=== PATIENT | male | born 1985 | race Two or more races ===

== ENCOUNTER 2022-06-08 23:11 | Emergency (ER) | payer SELFPAY ==
[2022-06-08] MEDS ORDERED: MECLIZINE HCL 25 MG TABLET (FP) PO ONE (23:18)
[2022-06-08] MEDS ORDERED: ONDANSETRON 4 MG/2 ML VIAL IVPB ONE (23:18)
[2022-06-08 23:21] VITALS: BP 138/99; PULSE 104; RESP 18; TEMP 97.8; BMI 36.6
[2022-06-08] MEDS ORDERED: ONDANSETRON 4 MG/2 ML VIAL ONE (23:42)
[2022-06-08] MEDS ORDERED: MECLIZINE HCL 25 MG TABLET (FP) ONE (23:43)
[2022-06-09 00:47] LABS: BASO % 0.4 % (0-2.0); EOS % 0.2 % (0-4.5); HEMATOCRIT 48.8 % (35.4-49); HEMOGLOBIN 16.6 GM/dL (11.7-16.9); LYMPH % 26.9 % (8-40); MCH 28.5 pg (25.7-33.7); MEAN PLT VOLUME 9.9 fl (7.5-11.1); MONO % 8.2 % (3.8-10.2); NEUT % 64.3 % (42.8-82.8); PLATELET COUNT 171 10^3/uL (134-434); RBC 5.81 M/mm3 (4.00-5.60); RDW 14.1 % (11.9-15.9); WHITE BLOOD COUNT 12.6 K/mm3 (4.0-10.0)
[2022-06-09 01:15] LABS: CHLORIDE 96 mmol/L (98-107); SODIUM 136 mmol/L (136-145)
[2022-06-09 01:17] LABS: ALBUMIN 4.6 g/dl (3.4-5.0); ANION GAP 11 MMOL/L (8-16); BLOOD UREA NITROGEN 16.2 mg/dL (7-18); CALCIUM 9.4 mg/dL (8.5-10.1); CO2 29 mmol/L (21-32)
[2022-06-09 01:20] LABS: CREATININE 1.1 mg/dL (0.55-1.3); SGOT/AST 17 U/L (15-37); SGPT/ALT 101 U/L (13-61)
[2022-06-09] MEDS ORDERED: MAG HYDROX/AL HYDROX/SIMETH 30 ML UNIT-DOSE CUP PO ONE (01:21)
[2022-06-09 01:22] LABS: BILIRUBIN,TOTAL 1.2 mg/dL (0.2-1); TOT PROT 8.3 g/dl (6.4-8.2)
[2022-06-09 01:23] LABS: ALK PHOS 251 U/L (45-117)
[2022-06-09] MEDS ORDERED: MAG HYDROX/AL HYDROX/SIMETH 30 ML UNIT-DOSE CUP ONE (01:25)
[2022-06-09 01:39] LABS: GLUCOSE,RANDOM 548 mg/dL (74-106)
[2022-06-09] MEDS ORDERED: INSULIN REGULAR HUMAN 100 UNITS/ML *VIAL IVPUSH ONE ×2 (01:51→03:48)
[2022-06-09] MEDS ORDERED: INSULIN REGULAR HUMAN 100 UNITS/ML *VIAL ONE ×2 (01:59→03:44)
[2022-06-09] MEDS ORDERED: SODIUM CHLORIDE 1,000 ML IV ONE ×3 (02:03→03:49)
== END 2022-06-09 04:58 | disposition home or self-care (01) ==
LOC: FER 23:11
PROC: 3E013VG Introduction of Insulin into Subcutaneous Tissue, Percutaneous Approach (ICD-10-PCS; principal; 2022-06-08)
PROC: 3E013VG Introduction of Insulin into Subcutaneous Tissue, Percutaneous Approach (ICD-10-PCS; 2022-06-08)
PROC: 3E033GC Introduction of Other Therapeutic Substance into Peripheral Vein, Percutaneous Approach (ICD-10-PCS; 2022-06-08)
PROC: 3E0337Z Introduction of Electrolytic and Water Balance Substance into Peripheral Vein, Percutaneous Approach (ICD-10-PCS; 2022-06-08)
DX: R55 Syncope and collapse (principal)
CPT/HCPCS: 36415; 70450-TC; 80053; 82962; 85025; 93005; 99285-25

== ENCOUNTER 2024-04-05 15:08 | Emergency (ER) | payer OTHER ==
[2024-04-05 16:41] VITALS: BP 165/94; PULSE 92; RESP 20; TEMP 98.4; BMI 29.9
[2024-04-05] MEDS ORDERED: METOCLOPRAMIDE HCL INJECTION 10 MG/2 ML VIAL ONE (16:58)
[2024-04-05] MEDS ORDERED: MECLIZINE HCL 25 MG TABLET (FP) ONE (16:59)
[2024-04-05 17:08] LABS: HEMATOCRIT 46.6 % (35.4-49); HEMOGLOBIN 15.5 G/dL (11.7-16.9); MCHC 33.2 g/dl (32.0-35.9); MEAN CELL VOLUME 84.3 fl (80-96); MEAN PLT VOLUME 9.8 fl (7.5-11.1); PLATELET COUNT 157.3 10^3/uL (134-434); RBC 5.53 10^6/uL (4.00-5.60); RDW 14.3 % (11.9-15.9); WHITE BLOOD COUNT 9.9 10^3/uL (4.0-10.8)
[2024-04-05] MEDS: SODIUM CHLORIDE 0.9% 1000 ML INFUS.BAG IV ONE (17:09)
[2024-04-05] MEDS: MECLIZINE HCL 25 MG TABLET (FP) PO ONE (17:09)
[2024-04-05] MEDS: METOCLOPRAMIDE HCL INJECTION 10 MG/2 ML VIAL IVPUSH ONE (17:10)
[2024-04-05 17:23] LABS: PLATELET ESTIMATE ADEQUATE
[2024-04-05 17:27] LABS: ALBUMIN 4.9 g/dl (3.4-5.0); BILIRUBIN,TOTAL 0.6 mg/dl (0.2-1); CALCIUM 9.4 mg/dl (8.5-10.1); CREATININE 0.7 mg/dl (0.6-1.3); POTASSIUM 3.7 mmol/L (3.5-5.1); TOT PROT 6.8 g/dl (6.4-8.2)
== END 2024-04-05 19:59 | disposition home or self-care (01) ==
LOC: FER 15:08
PROC: 3E033GC Introduction of Other Therapeutic Substance into Peripheral Vein, Percutaneous Approach (ICD-10-PCS; principal; 2024-04-05)
DX: R42 Dizziness and giddiness (principal); R11.2 Nausea with vomiting, unspecified; H92.02 Otalgia, left ear; H53.149 Visual discomfort, unspecified; Z20.822 Contact with and (suspected) exposure to COVID-19
CPT/HCPCS: 0241U-QW; 36415; 70450-TC; 80053; 85027; 99284-25

== ENCOUNTER 2024-04-07 12:02 | Emergency (ER) | payer OTHER ==
[2024-04-07 12:42] VITALS: BP 143/99; PULSE 88; RESP 16; TEMP 98.8; BMI 39.8
[2024-04-07] MEDS ORDERED: ACETAMINOPHEN INJECTION 100 ML IVPB ONE (13:16)
[2024-04-07] MEDS ORDERED: MECLIZINE HCL 25 MG TABLET (FP) ONE (13:16)
[2024-04-07] MEDS ORDERED: METOCLOPRAMIDE HCL INJECTION 10 MG/2 ML VIAL ONE (13:16)
[2024-04-07] MEDS: SODIUM CHLORIDE 0.9% 500 ML INFUS.BAG IV ONE (13:24)
[2024-04-07] MEDS: MECLIZINE HCL 25 MG TABLET (FP) PO ONE (13:24)
[2024-04-07] MEDS: ACETAMINOPHEN 1000 MG/100 ML BAG IVPB ONE (13:25)
[2024-04-07] MEDS: METOCLOPRAMIDE HCL INJECTION 10 MG/2 ML VIAL IVPUSH ONE (13:25)
[2024-04-07 13:33] LABS: HEMATOCRIT 46.8 % (35.4-49); HEMOGLOBIN 15.5 G/dL (11.7-16.9); MCH 27.8 pg (25.7-33.7); MCHC 33.1 g/dl (32.0-35.9); MEAN CELL VOLUME 83.8 fl (80-96); MEAN PLT VOLUME 9.8 fl (7.5-11.1); PLATELET COUNT 170.2 10^3/uL (134-434); RBC 5.58 10^6/uL (4.00-5.60); RDW 14.9 % (11.9-15.9); WHITE BLOOD COUNT 7.2 10^3/uL (4.0-10.8)
[2024-04-07 13:37] LABS: PLATELET ESTIMATE ADEQUATE
[2024-04-07 13:44] LABS: ALBUMIN 4.8 g/dl (3.4-5.0); BILIRUBIN,TOTAL 0.6 mg/dl (0.2-1); CALCIUM 9.8 mg/dl (8.5-10.1); CREATININE 0.7 mg/dl (0.6-1.3); POTASSIUM 4.2 mmol/L (3.5-5.1); TOT PROT 7.1 g/dl (6.4-8.2)
== END 2024-04-07 15:30 | disposition home or self-care (01) ==
LOC: FER 12:02
PROC: 3E033NZ Introduction of Analgesics, Hypnotics, Sedatives into Peripheral Vein, Percutaneous Approach (ICD-10-PCS; principal; 2024-04-07)
PROC: 3E033GC Introduction of Other Therapeutic Substance into Peripheral Vein, Percutaneous Approach (ICD-10-PCS; 2024-04-07)
DX: R51.9 Headache, unspecified (principal); R42 Dizziness and giddiness
CPT/HCPCS: 36415; 80053; 83036; 85027; 99284-25; J0131

== ENCOUNTER 2024-07-26 12:51 | Inpatient (IN) | payer OTHER ==
[2024-07-26 14:52] LABS: HEMATOCRIT 43.7 % (35.4-49); HEMOGLOBIN 15.2 G/dL (11.7-16.9); MCH 29.1 pg (25.7-33.7); MCHC 34.7 g/dl (32.0-35.9); MEAN CELL VOLUME 83.9 fl (80-96); PLATELET COUNT 136.9 10^3/uL (134-434); RBC 5.21 10^6/uL (4.00-5.60); RDW 13.9 % (11.9-15.9); WHITE BLOOD COUNT 8.7 10^3/uL (4.0-10.8)
[2024-07-26 15:05] LABS: PLATELET ESTIMATE ADEQUATE
[2024-07-26 15:34] LABS: ALBUMIN 4.8 g/dl (3.4-5.0); BILIRUBIN,TOTAL 0.8 mg/dl (0.2-1); CALCIUM 9.4 mg/dl (8.5-10.1); CREATININE 0.6 mg/dl (0.6-1.3); POTASSIUM 3.9 mmol/L (3.5-5.1); TOT PROT 6.7 g/dl (6.4-8.2)
[2024-07-26 18:13] LABS: HIV INTERPRETATION NEGATIVE (NEGATIVE)
[2024-07-26] MEDS ORDERED: ACETAMINOPHEN 325 MG TABLET (FP) PO PRN (19:54)
[2024-07-26] MEDS ORDERED: DOCUSATE SODIUM 100 MG CAPSULE (FP) PO PRN (19:54)
[2024-07-26 22:06] VITALS: BMI 43.3
[2024-07-26 22:11] VITALS: RESP 18
[2024-07-27 00:16] LABS: N-TERMINAL BNP 8.4 pg/ml (5-125)
[2024-07-27 08:42] LABS: HEMATOCRIT 48.2 % (35.4-49); HEMOGLOBIN 15.8 G/dL (11.7-16.9); MCH 27.6 pg (25.7-33.7); MCHC 32.9 g/dl (32.0-35.9); MEAN CELL VOLUME 84.2 fl (80-96); MEAN PLT VOLUME 10.2 fl (7.5-11.1); PLATELET COUNT 157.2 10^3/uL (134-434); RBC 5.73 10^6/uL (4.00-5.60); RDW 13.9 % (11.9-15.9); WHITE BLOOD COUNT 7.6 10^3/uL (4.0-10.8)
[2024-07-27 09:00] LABS: INR 1.02 (0.83-1.09); PROTHROMBIN TIME (PATIENT) 11.6 SEC (9.7-13.0)
[2024-07-27 09:03] LABS: ACTIVATED PTT 33.8 SECONDS (25.2-36.5)
[2024-07-27 09:14] LABS: CALCIUM 9.5 mg/dl (8.5-10.1); CREATININE 0.7 mg/dl (0.6-1.3); MAGNESIUM 2.3 mg/dL (1.8-2.4); PHOSPHOROUS 3.4 (2.5-4.9); POTASSIUM 3.9 mmol/L (3.5-5.1)
[2024-07-27] MEDS: LOSARTAN POTASSIUM 50 MG TABLET PO SCH (09:35)
[2024-07-27] MEDS: HYDROCHLOROTHIAZIDE 25 MG TABLET (FP) PO SCH (09:35)
[2024-07-27] MEDS ORDERED: HYDROCHLOROTHIAZIDE 50 MG TABLET PO SCH (10:00)
[2024-07-27 12:00] LABS: CREATININE, URINE RANDOM > 300.0 mg/dL (30-150)
[2024-07-28] MEDS ORDERED: MECLIZINE HCL 12.5 MG TABLET PO PRN (07:37)
[2024-07-28 08:01] LABS: CALCIUM 9.5 mg/dl (8.5-10.1); CREATININE 0.8 mg/dl (0.6-1.3)
[2024-07-28] MEDS: FLUTICASONE PROP 0.05% 16 GM NASAL SPRAY NS SCH (09:22)
[2024-07-28 10:00] LABS: BASO % 0.2 % (0-2.0); EOS % 1.6 % (0-4.5); HEMATOCRIT 44.2 % (35.4-49); HEMOGLOBIN 15.3 GM/dL (11.7-16.9); LYMPH % 28.6 % (8-40); MCH 28.7 pg (25.7-33.7); MCHC 34.5 g/dl (32.0-35.9); MEAN CELL VOLUME 83.2 fl (80-96); MONO % 8.8 % (3.8-10.2); NEUT % 60.8 % (42.8-82.8); PLATELET COUNT 160 10^3/uL (134-434); RBC 5.32 M/mm3 (4.00-5.60); WHITE BLOOD COUNT 7.8 K/mm3 (4.0-10.0)
[2024-07-28 10:18] VITALS: BP 151/74; PULSE 90; TEMP 98.8
[2024-07-28] MEDS ORDERED: HYDROCHLOROTHIAZIDE 25 MG TABLET (FP) PO SCH (22:00)
== END 2024-07-28 13:18 | disposition home or self-care (01) | DRG 111 ==
LOC: FER 12:51 → FM/S 20:22 → OBSVTOIN 07-27 12:19
PROVIDERS: ADMIT Internal Medicine; ATTEND Internal Medicine
DX: H81.399 Other peripheral vertigo, unspecified ear (principal); I10 Essential (primary) hypertension; I77.9 Disorder of arteries and arterioles, unspecified; Q27.9 Congenital malformation of peripheral vascular system, unspecified; R74.01 Elevation of levels of liver transaminase levels
CPT/HCPCS: 0241U-QW; 36415; 70450-TC; 70496-TC; 70498-TC; 70544-TC; 70547-TC; 70553-TC; 76705-TC; 80048; 80053; 82550; 82553; 82570; 82607; 82746; 83036; 83735; 83880; 84100; 84156; 84439; 84443; 84484; 85025; 85027; 85610; 85730; 86803; 87389; 93005; 97116-GP; 97162-GP; 99285-25; G0378